=== PATIENT | male | born 1940 | race Caucasian/White ===

== ENCOUNTER 2022-12-22 15:13 | Emergency (ER) | payer MEDICARE ==
[2022-12-22] MEDS ORDERED: Cephalexin 500 MG Cap ONE (16:30)
== END 2022-12-22 16:32 | disposition home or self-care (01) ==
LOC: LB.ED 15:13
DX: S81.832A Puncture wound without foreign body, left lower leg, initial encounter (principal); E78.00 Pure hypercholesterolemia, unspecified; I10 Essential (primary) hypertension; J45.909 Unspecified asthma, uncomplicated; Z79.899 Other long term (current) drug therapy; Z79.82 Long term (current) use of aspirin; W26.8XXA Contact with other sharp object(s), not elsewhere classified, initial encounter; Y93.02 Activity, running
CPT/HCPCS: 73590; 99283; A9270; 99282